=== PATIENT | male | born 1985 | race Two or more races ===

== ENCOUNTER 2020-05-01 12:25 | Emergency (ER) | payer MEDICAID ==
--- NOTE | 2020-05-01 12:38 | ED Physician Documentation ---
PD HPI LOWER EXT INJURY - Stated complaint Stated Complaint: L FOOT PAIN IN TOE - Chief complaint Chief Complaint: Trauma Ext - History obtained from History obtained from: Patient - History of Present Illness PD HPI LOW EXT INJURY LOCATION: Left, Toe Type of injury: Blunt / blow (he was walking in dark at home outside and stubbed great toe into stump. Pain, swelling, bruising at great toe. Denies other injuries.) Where injury occurred: Home Timing - onset: Last night Timing - details: Abrupt onset, Still present Worsened by: Moving, Palpating Associated symptoms: Swelling, Discolored (bruised). No: Weakness, Numbness Similar symptoms before: Has not had sx before Review of Systems Constitutional: denies: Fever, Chills Nose: denies: Rhinorrhea / runny nose, Congestion Throat: denies: Sore throat Respiratory: denies: Cough Skin: denies: Abrasion (s), Laceration (s) Neurologic: denies: Focal weakness, Numbness PD PAST MEDICAL HISTORY - Past Medical History Past Medical History: No - Present Medications Home Medications: Ambulatory Orders Medication Instructions Recorded Confirmed HYDROcod/ACETAM 5/325 [[place] 5/325] 1 ea PO Q6H PRN #15 tablet 05/01/20 - Allergies Allergies/Adverse Reactions: Allergies Allergy/AdvReac Type Severity Reaction Status Date / Time NSAIDS (Non-Steroidal AdvReac Unknown Verified 05/01/20 12:33 Anti-Inflamma PD ED PE NORMAL - Vitals Vital signs reviewed: Yes - General General: Alert and oriented X 3, Well developed/nourished, Other (appears in pain due to toe) - Derm Derm: Normal color, Warm and dry - Extremities Extremities: Other (left great toe with moderate swelling and bruising at IP area. LImited ROM due to pain, but able to flex and extend. Good sensation at tip. No disruption of the nailbed. ) - Neuro Neuro: No motor deficit, No sensory deficit Results - Vitals Vitals: Vital Signs - 24 hr 05/01/20 05/01/20 12:33 13:47 Temperature 36.6 C 36.8 C Heart Rate 63 67 Respiratory 16 16 Rate Blood Pressure 116/65 115/80 O2 Saturation 100 100 Oxygen O2 Source Room air - Rads (name of study) left great toe Radiology: Prelim report reviewed (nondisplaced fracture of proximal phalanx. ), See rad report PD MEDICAL DECISION MAKING - ED course Complexity details: reviewed results, considered differential, d/w patient Departure - Departure Disposition: 01 Home, Self Care Clinical Impression: Toe fracture, left Qualifiers: Encounter type: initial encounter Toe: great toe Fracture type: closed Phalanx: proximal Fracture alignment: nondisplaced Qualified Code(s): S92.415A - Nondisplaced fracture of proximal phalanx of left great toe, initial encounter for closed fracture Condition: Stable Record reviewed to determine appropriate education?: Yes Instructions: ED Fx Toe Closed Follow-Up: Andrea Maldonado MD [Provider Admit Priv/Credential] - Prescriptions: HYDROcod/ACETAM 5/325 [[place] 5/325] 1 ea PO Q6H PRN #15 tablet PRN Reason: Pain Comments: Your big toe is broken but not displaced. We wanted to heal in its correct position. Use the firm soled shoe and try to have mild use of the foot and minimize bending of the toe while its healing. The bruising and swelling should go down primarily over the next several days to a week. I will help the discomfort the most. Rest ice and elevate the toe often to promote decrease swelling. Use Tylenol every 4-6 hours if needed for pain. Short-term use hydrocodone if needed for worse pain. To ensure this is healing in correct position, follow-up with the orthopedics office in about a week or so. Call Sunday for an appointment. About 4 weeks for full healing. Discharge Date/Time: 05/01/20 14:18
[2020-05-01] MEDS ORDERED: ACETAMINOPHEN 325 MG TABLET PO STA (12:54)
--- NOTE | 2020-05-01 13:38 | XRAY Report ---
PROCEDURE: Toe(s) LT INDICATIONS: great toe injury last night TECHNIQUE: 2 views of the first toe(s) acquired. COMPARISON: None FINDINGS: Bones: Oblique nondisplaced fracture through the first digit proximal phalanx with intra-articular ex tension at the interphalangeal joint. No dislocations. No suspicious bony lesions. Soft tissues: No suspicious soft tissue densities. IMPRESSION: First digit proximal phalanx nondisplaced fracture with intra-articular extension at the interphalang eal joint. Reviewed by: Pb Craig MD on 05/01/2020 12:37 PM [facility] Approved by: Pb Craig MD on 05/01/2020 12:37 PM [facility] Station ID: [id number]
[2020-05-01 13:49] VITALS: BP 115/80
== END 2020-05-01 14:18 | disposition home or self-care (01) ==
LOC: ED 12:25
DX: S92.415A Nondisplaced fracture of proximal phalanx of left great toe, initial encounter for closed fracture (principal); W22.09XA Striking against other stationary object, initial encounter; Y93.01 Activity, walking, marching and hiking; Y92.007 Garden or yard of unspecified non-institutional (private) residence as the place of occurrence of the external cause
CPT/HCPCS: 73660; 99283; A9270

== ENCOUNTER 2021-07-25 15:30 | Emergency (ER) | payer MEDICAID, OTHER ==
--- NOTE | 2021-07-25 15:53 | XRAY Report ---
PROCEDURE: Finger(s) RT INDICATIONS: Trauma TECHNIQUE: AP hand, 3 views of the second finger(s) acquired. COMPARISON: None FINDINGS: Bones: There is a comminuted, mildly displaced fracture at the tuft of the second distal phalanx. How ever, nondisplaced lucencies also traverses the phalanx extending to the articular surface at the DIP joint. No suspicious bony lesions. Soft tissues: No suspicious soft tissue calcifications. IMPRESSION: Comminuted second distal tuft fracture, with nondisplaced fracture lucencies extending to the articul ar surface at the DIP joint.. Reviewed by: Brittany Mccloud MD on 07/25/2021 3:52 PM PDT Approved by: Brittany Mccloud MD on 07/25/2021 3:52 PM PDT Station ID: [id number]
[2021-07-25] MEDS ORDERED: BACITRACIN ZINC OINT 1 PACKET TOP STA (17:01)
[2021-07-25] MEDS ORDERED: AMOX/CLAV 875 MG/125 MG TABLET PO STA (17:09)
[2021-07-25] MEDS ORDERED: HYDROmorphone 1 MG/ML CARPUJECT IM STA (17:09)
--- NOTE | 2021-07-25 17:11 | ED Physician Documentation ---
PD HPI UPPER EXT INJURY - Stated complaint Stated Complaint: RT FINGER PX - Chief complaint Chief Complaint: Trauma Ext - History obtained from History obtained from: Patient - Additonal information Additional information: The patient comes to the emergency department with chief complaint of crush injury to right index finger. The patient states he was doing a project at home this afternoon when a 2 x 4 came down and smashed his finger against a cinder block. The patient states that he was not injured in any other way. He is left-hand dominant. He has a laceration on the side of his finger and also has had some blood oozing from around his fingernail. His last tetanus shot was a year and a half ago. No other complaints at this time. Review of Systems Ten Systems: 10 systems reviewed and negative Constitutional: reports: Reviewed and negative Eyes: reports: Reviewed and negative Ears: reports: Reviewed and negative Nose: reports: Reviewed and negative Throat: reports: Reviewed and negative Cardiac: reports: Reviewed and negative Respiratory: reports: Reviewed and negative GI: reports: Reviewed and negative : reports: Reviewed and negative Skin: reports: Laceration (s) Musculoskeletal: reports: Extremity pain, Extremity swelling Neurologic: reports: Reviewed and negative Psychiatric: reports: Reviewed and negative Endocrine: reports: Reviewed and negative Immunocompromised: reports: Reviewed and negative PD PAST MEDICAL HISTORY - Past Surgical History Past Surgical History: No - Present Medications Home Medications: Ambulatory Orders Medication Instructions Recorded Confirmed HYDROcod/ACETAM 5/325 [[place] 5/325] 1 ea PO Q6H PRN #15 tablet 05/01/20 Amox/Clav 875/125 [Augmentin] 1 each PO Q12H #20 tablet 07/25/21 HYDROcod/ACETAM 5/325 [[place] 5/325] 1 - 2 tablet PO Q6H PRN #20 tablet 07/25/21 - Allergies Allergies/Adverse Reactions: Allergies Allergy/AdvReac Type Severity Reaction Status Date / Time NSAIDS (Non-Steroidal AdvReac Unknown Verified 07/25/21 15:34 Anti-Inflamma - Social History Does the pt smoke?: Yes Smoking Status: Current every day smoker Does the pt drink ETOH?: No Does the pt have substance abuse?: No - Immunizations Immunizations are current?: Yes - POLST Patient has POLST: No PD ED PE NORMAL - Vitals Vital signs reviewed: Yes - General General: Alert and oriented X 3, No acute distress, Well developed/nourished - HEENT HEENT: Atraumatic, PERRL, EOMI, Moist mucous membranes - Neck Neck: Supple, no meningeal sign - Cardiac Cardiac: Strong equal pulses - Respiratory Respiratory: No respiratory distress - Derm Derm: Warm and dry, Other (Contusion right index fingertip; 1 cm skin tear/laceration to ulnar aspect of right index finger over the middle phalanx. No bone and wound. Mild oozing of blood. Subungual hematoma noted with blood oozing from the sides and tip of the fingernail.) - Extremities Extremities: No deformity, Other (Moderate edema right distal index finger. Limited range of motion DIP joint secondary to pain) - Neuro Neuro: Alert and oriented X 3, brace maker 2-12 intact, No motor deficit, No sensory deficit, Normal speech - Psych Psych: Normal mood, Normal affect Results - Vitals Vitals: Vital Signs - 24 hr 07/25/21 15:32 Temperature 37 C Heart Rate 68 Respiratory 18 Rate Blood Pressure 122/66 O2 Saturation 96 Oxygen O2 Source Room air - Rads (name of study) Right Hand x-ray series Radiology: Final report received, EMP read indepedently, See rad report (Comminuted distal phalanx fracture index finger) Procedures - Splint (location) Right index finger Splint applied by: Tech Type of splint: Metal foam finger splint Other: Patient tolerated well, No complications, Neurovascular intact, Good alignment PD MEDICAL DECISION MAKING - ED course Complexity details: reviewed results, re-evaluated patient, considered differential, d/w patient ED course: Patient's x-ray showed a comminuted fracture of the right index finger distal phalanx. He is up-to-date on tetanus, but did have an open fracture and was treated with Augmentin for this. He was also given IM Dilaudid in the emergency department. The wound was irrigated with normal saline and splint and dressing were placed. I have referred the patient to hand clinic for follow-up. Prescriptions for analgesia and antibiotics have been sent to the pharmacy of the patient's choice. Departure - Departure Disposition: 01 Home, Self Care Clinical Impression: Open fracture of distal phalanx of digit of right hand Condition: Stable Instructions: ED Fx Finger Open Follow-Up: AME MARTINEZ [Physician No Access] - Prescriptions: Amox/Clav 875/125 [Augmentin] 1 each PO Q12H #20 tablet HYDROcod/ACETAM 5/325 [[place] 5/325] 1 - 2 tablet PO Q6H PRN #20 tablet PRN Reason: Pain Comments: Your x-ray shows that you have smashed the bone of the end of your finger. This should be followed up by hand specialist to be sure that it does not need to be pinned back together. Please keep the splint in place until you have seen the hand specialist. You may take the pain medication as needed and should take the antibiotics every day as directed to avoid getting an infection. Please call the hand specialist office first thing tomorrow morning to schedule the soonest possible appointment preferably for within the week. If you develop any redness spreading up your finger, please have the finger rechecked immediately. Your prescriptions have been electronically transmitted to [facility] in [place].
[2021-07-25 17:42] VITALS: BP 131/81
== END 2021-07-25 17:50 | disposition home or self-care (01) ==
LOC: ED 15:30
DX: S62.630B Displaced fracture of distal phalanx of right index finger, initial encounter for open fracture (principal); W20.8XXA Other cause of strike by thrown, projected or falling object, initial encounter; Y93.H3 Activity, building and construction; Y92.009 Unspecified place in unspecified non-institutional (private) residence as the place of occurrence of the external cause; Y99.8 Other external cause status; F17.200 Nicotine dependence, unspecified, uncomplicated
CPT/HCPCS: 73140; 96372; 99282; 99283; A9270; J1170

== ENCOUNTER 2021-08-27 09:39 | Emergency (ER) | payer OTHER ==
[2021-08-27 09:50] VITALS: BP 104/65
--- NOTE | 2021-08-27 10:21 | XRAY Report ---
PROCEDURE: Finger(s) RT INDICATIONS: Trauma TECHNIQUE: AP hand, 2 views of the second finger(s) acquired. COMPARISON: 07/25/2021 FINDINGS: Bones: A comminuted fracture of the distal phalanx of the second finger is again seen. There is an or thopedic pin seen distally. No new fracture is seen. Soft tissues: No suspicious soft tissue calcifications. IMPRESSION: Comminuted fracture again seen involving the distal phalanx of the second finger, which appears simil ar to the preoperative study. An orthopedic pin is seen distally. Reviewed by: Tirso Fox MD on 08/27/2021 9:20 AM [facility] Approved by: Tirso Fox MD on 08/27/2021 9:20 AM [facility] Station ID: [id number]
--- NOTE | 2021-08-27 12:05 | ED Physician Documentation ---
PD HPI UPPER EXT INJURY - Stated complaint Stated Complaint: WOUND CHECK - Chief complaint Chief Complaint: Ext Problem - History obtained from History obtained from: Patient - Additonal information Additional information: 35-year-old gentleman had a comminuted tuft fracture of his right index finger about a month ago and had a fixation with 2 pins done at [facility]. He says he was given minimal wound care instructions and basically has kept it wrapped up the whole time. Recently unwrapped it and somehow one of the pins fell out and has increasing pain. No fevers. Review of Systems Constitutional: reports: Reviewed and negative. denies: Fever, Chills GI: denies: Abdominal Pain, Nausea, Vomiting Skin: denies: Rash, Lesions Musculoskeletal: denies: Neck pain, Back pain PD PAST MEDICAL HISTORY - Past Surgical History Past Surgical History: No - Present Medications Home Medications: Ambulatory Orders Medication Instructions Recorded Confirmed HYDROcod/ACETAM 5/325 [[place] 5/325] 1 - 2 tab PO Q6H PRN #15 tablet 08/27/21 cephALEXin [Keflex] 500 mg PO Q6H #28 cap 08/27/21 - Allergies Allergies/Adverse Reactions: Allergies Allergy/AdvReac Type Severity Reaction Status Date / Time NSAIDS (Non-Steroidal AdvReac Unknown Verified 08/27/21 09:47 Anti-Inflamma - Social History Does the pt smoke?: Yes Smoking Status: Current every day smoker Does the pt drink ETOH?: No Does the pt have substance abuse?: No - Immunizations Immunizations are current?: Yes - POLST Patient has POLST: No PD ED PE NORMAL - Vitals Vital signs reviewed: Yes - General General: Alert and oriented X 3, No acute distress - Extremities Extremities: Other (There is a single pin coming out of the tip of the right index finger with no ball on it. The finger is somewhat reddened and swollen at the tip and to the DIP and may be just a bit proximal to the DIP.) - Neuro Neuro: Alert and oriented X 3, Normal speech Eye Opening: Spontaneous Motor: Obeys Commands Verbal: Oriented GCS Score: 15 - Psych Psych: Normal mood, Normal affect Results - Vitals Vitals: Vital Signs - 24 hr 08/27/21 09:48 Temperature 36.9 C Heart Rate 69 Respiratory 18 Rate Blood Pressure 104/65 O2 Saturation 98 Oxygen O2 Source Room air - Rads (name of study) Right second finger x-ray Radiology: EMP read contemporaneously PD MEDICAL DECISION MAKING - ED course ED course: 35-year-old gentleman with pin loss from a tuft fracture and also with some subtle signs of infection. I discussed the case by phone with orthopedics, Dr. Miller who recommended giving the pin a bit of a tug because if it was severely infected it would pull out easily. Then wound care and Keflex and follow-up at [facility]. I did give the pin a bit of a tug and it did not move at all and as such the finger was dressed with Xeroform and a wrap by the [facility] and he is placed on Keflex to follow-up with [facility] on Sunday. Departure - Departure Disposition: Home, Self Care Clinical Impression: Open fracture of distal phalanx of digit of right hand Condition: Good Record reviewed to determine appropriate education?: Yes Instructions: ED Fx Finger Open Prescriptions: cephALEXin [Keflex] 500 mg PO Q6H #28 cap HYDROcod/ACETAM 5/325 [[place] 5/325] 1 - 2 tab PO Q6H PRN #15 tablet PRN Reason: Pain Comments: I sent prescriptions electronically to [facility] in [place]. Call [facility] on Sunday, they will probably want to see you within the few days of this coming workweek. Return for new or worsening symptoms. I am prescribing a short course of narcotic pain medication for you. These are potentially dangerous and addictive medications that should be used carefully. These medications may constipate you. Take an [id number] stool softener (docusate) twice daily with plenty of water while taking these medications. If you go 24 hours without a bowel movement, take [id number] miralax, per package instructions. Do not drink or drive while taking these medications. If you received narcotic or sedating medications while in the emergency department, do not drive for 24 hours. Store this medication in a safe, secure place and out of reach of children. It is a violation of federal law to give or sell this medication to another person or to use in a manner other than prescribed. The ED will not refill narcotic prescriptions, including prescriptions lost or stolen. To dispose of unwanted medications: 1. [facility] at [address] in [place] has a medication drop box. They accept prescription medications (in pill form) Sunday through Sunday 9:00 a.m. to 5:00 p.m. 2. The [facility] accepts prescription medications (in pill form only) for disposal year round. Call for more information. 3. Contact the [facility] for the next [facility] sponsored prescription drug collection event. , [phone], or [phone]; Note that many narcotic pain relievers also contain Tylenol/acetaminophen. Please ensure that your total dose of acetaminophen from all sources does not exceed 3 g (3000 mg) per day.
== END 2021-08-27 12:12 | disposition home or self-care (01) ==
LOC: ED 09:39
DX: T85.698A Other mechanical complication of other specified internal prosthetic devices, implants and grafts, initial encounter (principal); S62.630A Displaced fracture of distal phalanx of right index finger, initial encounter for closed fracture; X58.XXXA Exposure to other specified factors, initial encounter; F17.200 Nicotine dependence, unspecified, uncomplicated
CPT/HCPCS: 99283

== ENCOUNTER 2023-09-30 00:42 | Outpatient (CLI) | payer MEDICAID | END 2023-09-30 23:59 | disposition critical access hospital (66) | LOC: EMS 00:42 | PROVIDERS: ATTEND Emergency Medicine | DX: R45.851 Suicidal ideations (principal); F41.9 Anxiety disorder, unspecified | CPT/HCPCS: A0425; A0429 ==

== ENCOUNTER 2023-09-30 00:53 | Emergency (ER) | payer MEDICAID, OTHER ==
--- NOTE | 2023-09-30 00:52 | ED Physician Documentation ---
PD HPI MHE - Stated complaint Stated Complaint: SI - History obtained from History obtained from: Patient, Friend - Additional information Additional information: BIBA. Patient c/o suicidal thoughts. Unclear how long he has been having SI; many of his answers are evasive on my HPI. Similarly, when I ask if he is having AH and/or VH, he does not provide a clear answer. He says he recently self- inflicted cuts to his right forearm with intent of self-harm. He came to ED tonight because his friend (in ED at patient's bedside) convinced him he needs help. He says he is not currently taking prescription medication; when I ask him if he is supposed to be taking medication(s), he again does not provide a clear answer. PD PAST MEDICAL HISTORY - Present Medications Home Medications: Ambulatory Orders Medication Instructions Recorded Confirmed No Known Home Medications 09/30/23 09/30/23 - Allergies Allergies/Adverse Reactions: Allergies Allergy/AdvReac Type Severity Reaction Status Date / Time NSAIDS (Non-Steroidal AdvReac Unknown Verified 09/30/23 01:04 Anti-Inflamma PD ED PE NORMAL - Vitals Vital signs reviewed: Yes - General General: Alert and oriented X 3, No acute distress, Well developed/nourished - Cardiac Cardiac: RRR, No murmur - Respiratory Respiratory: No respiratory distress, Clear bilaterally - Abdomen Abdomen: Soft, Non tender - Derm Derm: Other (right forearm with old, healed lacerations as well as more recent superficial linear abrasions) - Neuro Neuro: Alert and oriented X 3 Eye Opening: Spontaneous Motor: Obeys Commands Verbal: Oriented GCS Score: 15 PD ED PE EXPANDED - Psych Psych: Other (odd and slightly labile affect) Results - Vitals Vitals: Vital Signs - 24 hr 09/30/23 01:05 Temperature 36.1 C L Heart Rate 58 L Respiratory 16 Rate Blood Pressure 126/97 H O2 Saturation 98 Oxygen O2 Source Room air - Labs Labs: Laboratory Tests 09/30/23 09/30/23 09/30/23 01:10 02:05 02:05 WBC 6.6 RBC 4.22 L Hgb 13.2 L Hct 41.3 L MCV 97.9 H MCH 31.3 H MCHC 32.0 RDW 13.9 Plt Count 265 MPV 10.2 Neut # (Auto) 3.4 Lymph # (Auto) 2.1 [place] # (Auto) 0.8 Eos # (Auto) 0.2 Baso # (Auto) 0.0 Absolute Nucleated RBC 0.00 Nucleated RBC % 0.0 Sodium 138 Potassium 3.8 Chloride 107 Carbon Dioxide 25 Anion Gap 6.0 BUN 13 Creatinine 0.8 Estimated GFR (MDRD) 109 Glucose 89 Calcium 9.3 Magnesium 1.7 Total Bilirubin 0.3 AST 18 ALT 15 Alkaline Phosphatase 68 Total Creatine Kinase 211 Total Protein 7.1 Albumin 4.4 Globulin 2.7 Albumin/Globulin Ratio 1.6 Lipase 304 H TSH 1.10 Urine Color YELLOW Urine Clarity CLEAR Urine pH 6.0 Ur Specific [place] 1.015 Urine Protein NEGATIVE Urine Glucose (UA) NEGATIVE Urine Ketones NEGATIVE Urine Occult Blood TRACE-INTA Urine Nitrite NEGATIVE Urine Bilirubin NEGATIVE Urine Urobilinogen 0.2 (NORMAL) Ur Leukocyte Esterase NEGATIVE Ur Microscopic Review NOT INDICATED Urine Culture Comments NOT INDICATED Salicylates < 1.5 Urine Opiates Screen NEGATIVE Ur Buprenorphine Scrn NEGATIVE Ur Oxycodone Screen NEGATIVE Urine Methadone Screen NEGATIVE Acetaminophen < 0.1 Ur Barbiturates Screen NEGATIVE Ur Tricyclics Screen NEGATIVE Ur Phencyclidine Scrn NEGATIVE Ur Amphetamine Screen NEGATIVE U Methamphetamines Scrn NEGATIVE U Benzodiazepines Scrn NEGATIVE Urine Cocaine Screen NEGATIVE U Cannabinoids Screen POSITIVE H Ur Drug Screen Comment MUDS CUTOFF Ethyl Alcohol 82.1 09/30/23 03:33 WBC RBC Hgb Hct MCV MCH MCHC RDW Plt Count MPV Neut # (Auto) Lymph # (Auto) [place] # (Auto) Eos # (Auto) Baso # (Auto) Absolute Nucleated RBC Nucleated RBC % Sodium Potassium Chloride Carbon Dioxide Anion Gap BUN Creatinine Estimated GFR (MDRD) Glucose Calcium Magnesium Total Bilirubin AST ALT Alkaline Phosphatase Total Creatine Kinase Total Protein Albumin Globulin Albumin/Globulin Ratio Lipase TSH Urine Color Urine Clarity Urine pH Ur Specific [place] Urine Protein Urine Glucose (UA) Urine Ketones Urine Occult Blood Urine Nitrite Urine Bilirubin Urine Urobilinogen Ur Leukocyte Esterase Ur Microscopic Review Urine Culture Comments Salicylates Urine Opiates Screen Ur Buprenorphine Scrn Ur Oxycodone Screen Urine Methadone Screen Acetaminophen Ur Barbiturates Screen Ur Tricyclics Screen Ur Phencyclidine Scrn Ur Amphetamine Screen U Methamphetamines Scrn U Benzodiazepines Scrn Urine Cocaine Screen U Cannabinoids Screen Ur Drug Screen Comment Ethyl Alcohol 62.7 PD Medical Decision Making - ED course Complexity details: reviewed results, re-evaluated patient, considered differential, d/w patient ED course: Patient is medically cleared via MHE-oriented testing (note that the initial serum ethanol level was 82 and thus a repeat level is undertaken and this result is 62.7). Incidental note is made of mildly elevated lipase (304). Urine drug screen is positive for cannabinoids. A request for telepsychiatric consult is ordered, but there are no available providers throughout the remainder of my shift and thus the care of this patient is turned over to the oncoming ED physician (Dr. Ayala).
[2023-09-30 02:13] LABS: BASOPHILS % (AUTO) 0.5 %; EOSINOPHILS # (AUTO) 0.2 10^3/uL (0.0-0.7); EOSINOPHILS % (AUTO) 3.2 %; HCT - HEMATOCRIT 41.3 % (42.0-52.0); HGB - HEMOGLOBIN 13.2 g/dL (14.0-18.0); LYMPHOCYTES # (AUTO) 2.1 10^3/uL (1.5-3.5); LYMPHOCYTES % (AUTO) 32.5 %; MEAN CORPUSCULAR HEMOGLOBIN 31.3 pg (27.0-31.0); MEAN CORPUSCULAR VOLUME 97.9 fL (80.0-94.0); MEAN PLATELET VOLUME 10.2 fL (7.4-11.4); MONOCYTES # (AUTO) 0.8 10^3/uL (0.0-1.0); MONOCYTES % (AUTO) 11.4 %; NEUTROPHILS # (AUTO) 3.4 10^3/uL (1.5-6.6); NEUTROPHILS % (AUTO) 52.1 %; PLT - PLATELET COUNT 265 10^3/uL (130-450); RED BLOOD COUNT 4.22 10^6/uL (4.70-6.10); RED CELL DISTRIBUTION WIDTH 13.9 % (12.0-15.0); WHITE BLOOD COUNT 6.6 x10^3/uL (4.8-10.8)
[2023-09-30 02:19] LABS: BILIRUBIN,URINE NEGATIVE (NEGATIVE); GLUCOSE, URINE (UA) NEGATIVE (NEGATIVE); KETONES,URINE (UA) NEGATIVE (NEGATIVE); LEUKOCYTE ESTERASE, URINE NEGATIVE (NEGATIVE); NITRITE,URINE NEGATIVE (NEGATIVE); OCCULT BLOOD,URINE TRACE-INTA (NEGATIVE); PROTEIN,URINE NEGATIVE (NEGATIVE); UROBILINOGEN,URINE 0.2 (NORMAL) E.U./dL (NORMAL)
[2023-09-30 02:20] LABS: CLARITY,URINE CLEAR (CLEAR)
[2023-09-30 02:30] LABS: AMPHETAMINE SCREEN,URINE NEGATIVE (NEGATIVE); BARBITURATE SCREEN,UR NEGATIVE (NEGATIVE); BENZODIAZEPINES SCREEN, URINE NEGATIVE (NEGATIVE); BUPRENORPHINE SCREEN, URINE NEGATIVE (NEGATIVE); COCAINE SCREEN URINE NEGATIVE (NEGATIVE); METHADONE SCREEN, URINE NEGATIVE (NEGATIVE); METHAMPHETAMINES SCREEN, URINE NEGATIVE (NEGATIVE); OPIATE SCREEN, URINE NEGATIVE (NEGATIVE); OXYCODONE SCREEN, URINE NEGATIVE (NEGATIVE); THC CANNABINOID SCREEN, URINE POSITIVE (NEGATIVE); TRICYCLIC ANTIDEPRESSANT,URINE NEGATIVE (NEGATIVE)
[2023-09-30 02:30] LABS: ALBUMIN 4.4 g/dL (3.2-5.5); ALBUMIN/GLOBULIN RATIO 1.6 (1.0-2.2); ALKALINE PHOSPHATASE 68 IU/L (42-121); ALT ALANINE AMINOTRANSFERASE 15 IU/L (10-60); AST ASPARTATE AMINOTRANSFERASE 18 IU/L (10-42); BILIRUBIN,TOTAL 0.3 mg/dL (0.2-1.0); BUN - BLOOD UREA NITROGEN 13 mg/dL (6-20); CALCIUM 9.3 mg/dL (8.5-10.3); CARBON DIOXIDE - CO2 25 mmol/L (21-32); CHLORIDE 107 mmol/L (101-111); CK- CREATINE KINASE 211 IU/L (30-223); CREATININE 0.8 mg/dL (0.6-1.3); ETOH - ETHANOL 82.1 mg/dL; GFR - MDRD 109 (>89); GLUCOSE 89 mg/dL (74-104); LIPASE 304 U/L (11-82); MAGNESIUM 1.7 mg/dL (1.7-2.3); POTASSIUM 3.8 mmol/L (3.5-4.5); SALICYLATE < 1.5 mg/dL; SODIUM 138 mmol/L (135-145); TOTAL PROTEIN 7.1 g/dL (6.4-8.9)
[2023-09-30 02:31] LABS: ACETAMINOPHEN < 0.1 ug/mL
[2023-09-30] MEDS: NICOTINE 21 MG PATCH TOP STA (08:35)
[2023-09-30 09:42] VITALS: O2SAT 100
--- NOTE | 2023-09-30 11:33 | ED Physician Documentation ---
ED Addendum - Addendum Addendum: 09/30/23 11:33 Seen by telepsychiatry physician who recommended inpatient treatment and [facility] has arranged for him to go to [facility]. Disposition: Transferred for psychiatric care Condition: Stable Diagnosis: 1. Schizoaffective disorder, depressed type 2. Alcohol abuse 3. Suicidal ideation
[2023-09-30 14:34] VITALS: BP 125/71
[2023-09-30] MEDS: LORazepam 1 MG TABLET PO STA (14:49)
== END 2023-09-30 15:30 ==
LOC: EDUNIT# → ED 00:53
DX: F25.1 Schizoaffective disorder, depressive type (principal); R45.851 Suicidal ideations; F10.10 Alcohol abuse, uncomplicated; Y90.4 Blood alcohol level of 80-99 mg/100 ml; R74.8 Abnormal levels of other serum enzymes
CPT/HCPCS: 36415; 80053; 80143; 80179; 80306; 81003; 82077; 82550; 83690; 83735; 84443; 85025; 87635; 99285; A9270; G0425; J8499; Q3014; 81001; 87086